=== PATIENT | male | born 1975 | race Caucasian/White ===

== ENCOUNTER 2019-07-19 13:12 | Emergency (ER) | payer SELFPAY ==
[~2019-07-19] VITALS: Ht 165.1 cm; Wt 69.0 kg
[2019-07-19 13:33] VITALS: BP 143/64
== END 2019-07-19 16:08 | disposition home or self-care (01) ==
LOC: ER 13:12
DX: R09.89 Other specified symptoms and signs involving the circulatory and respiratory systems (principal); T17.228A Food in pharynx causing other injury, initial encounter; E11.9 Type 2 diabetes mellitus without complications; X58.XXXA Exposure to other specified factors, initial encounter; Y93.89 Activity, other specified; Y92.018 Other place in single-family (private) house as the place of occurrence of the external cause
CPT/HCPCS: 70360; 99283